=== PATIENT | female | born 1975 | race Caucasian/White ===

== ENCOUNTER 2021-08-21 13:03 | Outpatient (RCR) | payer OTHER, BC, SELFPAY ==
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
--- NOTE | 2021-12-10 15:16 | HP.PT.NRP ---
GONZALO WILKINSON was seen in my office for initial evaluation on 08/21/21. The following Plan of Care was established for this patient: Initial Frequency: 2-3x /Week Initial Duration: 4-6 Weeks Patient/Client Instruction: Educate patient on: Condition, Plan of Care For the Purpose of:: To improve self management Therapeutic Exercise to Include: Strength training, Balance training, Flexibilty training, Passive ROM, Active ROM, Dynamic Lumbar Stabilization For the Purpose of:: To decrease pain, To increase ROM, To improve muscle performance and motor function Cryotherapy (ice pack, ice massage): Yes For the Purpose of:: To decrease pain This patient was last seen in our office . Pertinent comments regarding their Physical therapy will appear below: Pt was evaluated for L knee pain on 08/21/21. Pt has not returned through todays date and is discontinued at this time At this point I will be discontinuing this patient from physical therapy. I would be happy to see this patient again in the future if found appropriate by the physician. Thank you! Krzysztof Morrison, PT, ATC Balance/Gait/Functional tests - Balance/Special Test Scores Lower Extremity Functional Score: 34
== END 2021-08-21 19:00 | disposition home or self-care (01) ==
LOC: PT 13:03
PROVIDERS: Referring Provider Physician Assistant Surgical; Visit Provider Physician Assistant Surgical
DX: S86.912D Strain of unspecified muscle(s) and tendon(s) at lower leg level, left leg, subsequent encounter (principal); S80.02XD Contusion of left knee, subsequent encounter; X58.XXXD Exposure to other specified factors, subsequent encounter
CPT/HCPCS: 97161